=== PATIENT | male | born 1990 | race Hispanic/Latino ===

== ENCOUNTER 2018-12-21 22:15 | Emergency (ER) | payer OTHER ==
[2018-12-21 22:25] VITALS: RESP 16
--- NOTE | 2018-12-21 23:18 | C.PDOC ---
History Of Present Illness 27 year old male presents to the ED c/o cough, congestion for the past 2 weeks. Patient states he has not taken any OTC medications for his symptoms. Patient also c/o painful lump to the back of his right ear for the past 3 days. Patient states he tried popping the lump with small blood coming out. Patient denies fever, chills, injury, fall, trauma, rash. Time Seen by Provider: 12/21/18 22:29 Chief Complaint (Nursing): ENT Problem History Per: Patient History/Exam Limitations: no limitations Onset/Duration Of Symptoms: Days Current Symptoms Are (Timing): Still Present Location Of Pain: Throat Sick Contacts (Context): None Associated Symptoms: Cough, Sinus Drainage, Nasal Congestion Ear Symptoms: Right: External Ear Redness (posterior lump) Recent travel outside of the [place]: No Additional History Per: Patient Past Medical History Reviewed: Historical Data, Nursing Documentation, Vital Signs Vital Signs: Last Vital Signs Temp 98.3 F 12/21/18 22:22 Pulse 67 12/21/18 22:22 Resp 16 12/21/18 22:22 BP 125/82 12/21/18 22:22 Pulse Ox 99 12/21/18 22:22 - Medical History PMH: No Chronic Diseases Surgical History: No Surg Hx Family History: States: Unknown Family Hx - Social History Hx Alcohol Use: Yes Hx Substance Use: Yes Review Of Systems Constitutional: Negative for: Fever, Chills Eyes: Negative for: Vision Change ENT: Positive for: Ear Pain. Negative for: Ear Discharge Respiratory: Negative for: Cough, Shortness of Breath Gastrointestinal: Negative for: Nausea, Vomiting Skin: Negative for: Rash Neurological: Negative for: Weakness, Numbness, Headache Physical Exam - Physical Exam Appears: Non-toxic, No Acute Distress Skin: Normal Color, Warm, Dry Head: Atraumatic, Normacephalic Eye(s): bilateral: Normal Inspection, PERRL Ear(s): Left: Normal, Right: Normal, Other (indurated, erythematous, non fluctuant small pea sized lump to posterior earlobe) Nose: No Discharge Oral Mucosa: Moist Throat: Normal, No Erythema, No Exudate Neck: Normal ROM, Supple Chest: Symmetrical Cardiovascular: Rhythm Regular Respiratory: Normal Breath Sounds, No Rhonchi, No Wheezing Extremity: Normal ROM Neurological/Psych: Oriented x3, Normal Speech, Normal Cognition Gait: Steady ED Course And Treatment O2 Sat by Pulse Oximetry: 99 (ON RA) Pulse Ox Interpretation: Normal Progress Note: Patient was advised to use NSAIDs for pain management and to follow up in 2 days for wound check or with PMD for further evaluation. Disposition Counseled Patient/Family Regarding: Diagnosis, Need For Followup, Rx Given - Disposition Disposition: HOME/ ROUTINE Disposition Time: 23:14 Condition: STABLE Additional Instructions: INCREASE PO FLUIDS TAKE MEDICATIONS DIRECTED WOUND CHECK IN 2 DAYS RETURN TO ER IF WORSE Prescriptions: Benzonatate [Tessalon Perles] 200 mg PO TID #14 sgl Doxycycline Hyclate [Doryx] 100 mg PO BID #14 cap Instructions: Boil (DC), Upper Respiratory Infection (ED) Forms: [email or web address] (Persian) - Clinical Impression Clinical Impression: Upper respiratory infection, Boil, ear - PA / CHIROPRACTIC DOCTOR / Resident Statement MD/DO has reviewed & agrees with the documentation as recorded. - Scribe Statement The provider has reviewed the documentation as recorded by the Scribe Rajeev Ureña All medical record entries made by the Scribe were at my direction and personally dictated by me. I have reviewed the chart and agree that the record accurately reflects my personal performance of the history, physical exam, medical decision making, and the department course for this patient. I have also personally directed, reviewed, and agree with the discharge instructions and disposition.
[2018-12-21 23:31] VITALS: BP 131/87; PULSE 64; TEMP 98.4
[2018-12-22 00:30] VITALS: O2SAT 99
== END 2018-12-21 23:31 | disposition home or self-care (01) ==
LOC: C.ER 22:15
DX: J06.9 Acute upper respiratory infection, unspecified (principal); H60.01 Abscess of right external ear